=== PATIENT | female | born 1945 | race Caucasian/White ===

== ENCOUNTER → 2019-12-17 | Outpatient (CLI) | payer MEDICARE ==
[~2019-12-17] MED LIST: Aspir 8181 MG PO; Bystolic5 MG PO; CARB200; CRUTCH USE; Coumadin5 MG PO; GABA300 PO; HYDACE5325 PO; HYDCHL12.5 PO; MECL25 PO; OXYACE5T PO; XARELTO20 MG PO
== END | disposition home or self-care (01) ==
LOC: LAB SHORT 09:20 → LAB EV 09:20
DX: N39.0 Urinary tract infection, site not specified (principal)
CPT/HCPCS: 87086

== ENCOUNTER 2020-05-29 14:51 | Emergency (ER) | payer MEDICARE ==
[~2020-05-29] VITALS: Ht 165.1 cm; Wt 94.8 kg
[2020-05-29] MEDS ORDERED: Lovastatin20 MG PO (14:58)
[2020-05-29] MEDS ORDERED: HYDROCODONE-AC1 EA10 PO (14:58)
[2020-05-29] MEDS ORDERED: NITR.4SL SL (14:59)
[2020-05-29] MEDS ORDERED: ALBU8HFA2 (14:59)
[2020-05-29] MEDS ORDERED: GABA300 PO (14:59)
[2020-05-29] MEDS ORDERED: FURO40 PO (14:59)
[2020-05-29] MEDS ORDERED: MULVITA PO (15:00)
[2020-05-29] MEDS ORDERED: Lisinopril-Hct1 EAC4 PO (15:00)
[2020-05-29] MEDS ORDERED: ALEN70 PO (15:00)
[2020-05-29] MEDS ORDERED: POTA10T PO (15:00)
[2020-05-29] MEDS ORDERED: HYDRO EYE (15:00)
[2020-05-29 15:42] LABS: BASOPHILS ABSOLUTE AUTO 0.06 K/mm3 (0.00-0.23); BASOPHILS PERCENT AUTO 1 % (0-2); EOSINOPHILS ABSOLUTE AUTO 0.69 K/mm3 (0.00-0.68); EOSINOPHILS PERCENT AUTO 8 % (0-6); Hematocrit 44.6 % (33.0-51.0); Hemoglobin 14.2 g/dL (11.5-16.0); IMMATURE GRAN ABSOLUTE AUTO 0.03 K/mm3 (0.00-0.10); IMMATURE GRAN PERCENT AUTO 0 % (0-1); LYMPHOCYTES ABSOLUTE AUTO 2.31 K/mm3 (0.84-5.20); LYMPHOCYTES PERCENT AUTO 27 % (21-46); MONOCYTES ABSOLUTE AUTO 0.75 K/mm3 (0.16-1.47); MONOCYTES PERCENT AUTO 9 % (4-13); Mean Corpuscular HGB 28.7 pg (26.0-34.0); Mean Corpuscular HGB Conc 31.8 g/dL (31.5-36.5); Mean Corpuscular Volume 90 fL (80-100); NEUTROPHILS ABSOLUTE AUTO 4.77 K/mm3 (1.96-9.15); NEUTROPHILS PERCENT AUTO 56 % (41-73); Platelet Count 191 K/mm3 (150-400); RDW Coefficient Variation 12.9 % (11.7-14.2); RDW Standard Deviation 42.5 fL (35.1-46.3); Red Blood Cell Count 4.95 M/mm3 (3.80-5.20); White Blood Cell Count 8.61 K/mm3 (4.00-11.30)
[2020-05-29] MEDS ORDERED: XARELTO15 MG PO (16:20)
[2020-05-29 16:22] LABS: Alanine Aminotransfer (ALT/SGP 19 U/L (12-78); Albumin, Blood 3.7 g/dL (3.4-5.0); Albumin/Globulin Ratio 0.9 (0.8-1.8); Alk Phos 81 U/L (50-136); Anion Gap 4 mmol/L (6-16); Aspartate Aminotrans (AST/SGOT 16 U/L (12-37); Bilirubin, Total 0.4 mg/dL (0.1-1.0); Blood Urea Nitrogen 12 mg/dL (8-24); Bun/Creatinine Ratio 12.9 (12.0-20.0); CO2, Blood 28 mmol/L (21-32); Calcium, Blood 9.3 mg/dL (8.5-10.1); Chloride, Blood 108 mmol/L (98-108); Creatinine, Blood 0.93 mg/dL (0.40-1.00); Globulin, Blood 4.3 g/dL (2.2-4.0); Glomerular Filtration Rate >60 (60-); Glucose, Blood 100 mg/dL (70-99); Potassium, Blood 4.2 mmol/L (3.5-5.5); Sodium, Blood 140 mmol/L (136-145)
[2020-11-02] MEDS ORDERED: Prinivil10 MG (12:09)
[2020-11-02] MEDS ORDERED: IPRAT-ALBUT 0.5-3 ML (12:09)
== END 2020-05-29 17:20 | disposition home or self-care (01) ==
LOC: ER 14:51
PROVIDERS: Physician Assistant
DX: I82.411 Acute embolism and thrombosis of right femoral vein (principal); I82.431 Acute embolism and thrombosis of right popliteal vein; I82.441 Acute embolism and thrombosis of right tibial vein; Z88.2 Allergy status to sulfonamides
CPT/HCPCS: 80053; 85025; 93971; 99284-25; A9270

== ENCOUNTER 2020-11-10 11:52 | Day surgery (SDC) | payer MEDICARE ==
[~2020-11-10] VITALS: Ht 165.1 cm; Wt 94.1 kg
[~2020-11-10 11:52] MED LIST changes: +ALBU8HFA2; +ALEN70 PO; +FURO40 PO; +HYDRO EYE; +HYDROCODONE-AC1 EA10 PO; +IPRAT-ALBUT 0.5-3 ML; +Lisinopril-Hct1 EAC4 PO; +Lovastatin20 MG PO; +MULVITA PO; +NITR.4SL SL; +POTA10T PO; +Prinivil10 MG; +XARELTO15 MG PO
--- NOTE | 2020-11-10 12:22 | NUR ---
11/10/20 1222 True,Nam HASSAN BOWEL PREP [facility]
== END 2020-11-10 14:40 | disposition home or self-care (01) ==
LOC: ORSCSDS 11:52
PROVIDERS: Surgery
PROC: 0DB68ZX Excision of Stomach, Via Natural or Artificial Opening Endoscopic, Diagnostic (ICD-10-PCS; principal; 2020-11-10 13:00)
PROC: 0DBH8ZX Excision of Cecum, Via Natural or Artificial Opening Endoscopic, Diagnostic (ICD-10-PCS; principal; 2020-11-10 13:00)
PROC: 0DBL8ZX Excision of Transverse Colon, Via Natural or Artificial Opening Endoscopic, Diagnostic (ICD-10-PCS; principal; 2020-11-10 13:00)
DX: K62.5 Hemorrhage of anus and rectum (principal); R13.10 Dysphagia, unspecified; B96.81 Helicobacter pylori [H. pylori] as the cause of diseases classified elsewhere; D12.0 Benign neoplasm of cecum; D12.3 Benign neoplasm of transverse colon; K25.9 Gastric ulcer, unspecified as acute or chronic, without hemorrhage or perforation; K64.8 Other hemorrhoids; I25.10 Atherosclerotic heart disease of native coronary artery without angina pectoris; I10 Essential (primary) hypertension; G47.33 Obstructive sleep apnea (adult) (pediatric); N18.30 Chronic kidney disease, stage 3 unspecified; E66.9 Obesity, unspecified; Z68.34 Body mass index [BMI] 34.0-34.9, adult; Z79.01 Long term (current) use of anticoagulants; Z79.899 Other long term (current) drug therapy
CPT/HCPCS: 88305; 88341; 88342; J2704; J7120

== ENCOUNTER → 2021-01-21 | Outpatient (CLI) | payer MEDICARE | END | disposition home or self-care (01) | LOC: LAB SHORT 17:26 | DX: N39.0 Urinary tract infection, site not specified (principal) | CPT/HCPCS: 87077; 87086; 87186 ==

== ENCOUNTER 2021-06-04 06:07 | Day surgery (SDC) | payer MEDICARE ==
[~2021-06-04] VITALS: Ht 165.1 cm; Wt 96.8 kg
[~2021-06-04 06:07] MED LIST changes: +NEURONTIN300 MG PO; +Ventolin/Prove6.7 GM; +XARELTO20 M1 PO
--- NOTE | 2021-06-04 06:41 | NUR ---
Ambulatory in [facility] warming gown applied. History, Chart, Medications and Allergies reviewed before start of procedure.Lungs clear T/O to Auscultation. Patient confirms NPO status and agrees with scheduled surgery. Pre-Op teaching done. Pt verbalizes understanding. Patient States Post-Procedure ride home has been arranged.
--- NOTE | 2021-06-04 08:06 | NUR ---
06/04/21 0806 Marilyn Fernandez NO PREOP ANTIBIOTICS ORDERED PER .
--- NOTE | 2021-06-04 09:54 | NUR ---
PT TOLERATING PO FLUIDS AND FOOD, ABLE TO REPOSITION SELF IN BED. PT ALERT AND ORIENTED AND REQUESTING TO BE DISCHARGED.
--- NOTE | 2021-06-04 10:22 | NUR ---
Patient up to Ambulate independently. Gait steady. Discharge instructions reviewed with patient. Patient verbalizes understanding. Copy given to patient to take home. Patient States Post-Procedure ride home has been arranged. Discharged via wheelchair to private car for ride home. ALL BELONGINGS RETURNED TO PATIENT.
== END 2021-06-04 12:00 | disposition home or self-care (01) ==
LOC: ORSCMMR 06:07 → ORD 09:45 → ORSCMMR 09:45
PROVIDERS: Surgery
PROC: 06BY0ZC Excision of Hemorrhoidal Plexus, Open Approach (ICD-10-PCS; principal; 2021-06-04 07:30)
DX: K64.2 Third degree hemorrhoids (principal); I10 Essential (primary) hypertension; I25.10 Atherosclerotic heart disease of native coronary artery without angina pectoris; G47.33 Obstructive sleep apnea (adult) (pediatric); N18.30 Chronic kidney disease, stage 3 unspecified; K21.9 Gastro-esophageal reflux disease without esophagitis; Z79.899 Other long term (current) drug therapy; Z86.718 Personal history of other venous thrombosis and embolism; Z79.01 Long term (current) use of anticoagulants; E66.01 Morbid (severe) obesity due to excess calories; Z68.35 Body mass index [BMI] 35.0-35.9, adult
CPT/HCPCS: 88304; J1100; J2370; J2405; J2704; J3010; J7120

== ENCOUNTER → 2021-06-09 | Outpatient (CLI) | payer MEDICARE | END | disposition home or self-care (01) | LOC: LAB SHORT 11:15 | DX: R30.9 Painful micturition, unspecified (principal) | CPT/HCPCS: 87077; 87086; 87186 ==

== ENCOUNTER 2024-01-03 10:43 | Inpatient (IN) | payer MEDICARE ==
[~2024-01-03] VITALS: Ht 165.1 cm; Wt 94.6 kg
[2024-01-03] VITALS (7 sets, daily range): BP systolic 147–188; BP diastolic 86–136
[2024-01-03 11:20] LABS: BASOPHILS ABSOLUTE AUTO 0.07 K/mm3 (0.00-0.23); BASOPHILS PERCENT AUTO 1 % (0-2); EOSINOPHILS ABSOLUTE AUTO 0.05 K/mm3 (0.00-0.68); EOSINOPHILS PERCENT AUTO 0 % (0-6); Hematocrit 44.5 % (33.0-51.0); IMMATURE GRAN ABSOLUTE AUTO 0.54 K/mm3 (0.00-0.10); IMMATURE GRAN PERCENT AUTO 4 % (0-1); LYMPHOCYTES ABSOLUTE AUTO 2.45 K/mm3 (0.84-5.20); LYMPHOCYTES PERCENT AUTO 18 % (21-46); MONOCYTES ABSOLUTE AUTO 1.09 K/mm3 (0.16-1.47); MONOCYTES PERCENT AUTO 8 % (4-13); Mean Corpuscular HGB 29.8 pg (26.0-34.0); Mean Corpuscular HGB Conc 33.7 g/dL (31.5-36.5); Mean Corpuscular Volume 88 fL (80-100); Mean Platelet Volume 9.9 fL (9.1-12.4); NEUTROPHILS ABSOLUTE AUTO 9.47 K/mm3 (1.96-9.15); NEUTROPHILS PERCENT AUTO 69 % (41-73); Platelet Count 335 K/mm3 (150-400); RDW Coefficient Variation 12.9 % (11.7-14.2); RDW Standard Deviation 41.7 fL (35.1-46.3); Red Blood Cell Count 5.04 M/mm3 (3.80-5.20); White Blood Cell Count 13.67 K/mm3 (4.00-11.30)
[2024-01-03 11:35] LABS: Albumin, Blood 3.4 g/dL (3.4-5.0); Albumin/Globulin Ratio 0.9 (0.8-1.8); Bilirubin, Total 0.6 mg/dL (0.1-1.0); Bun/Creatinine Ratio 25.6 (12.0-20.0); Calcium, Blood 9.2 mg/dL (8.5-10.1); Creatinine, Blood 1.33 mg/dL (0.40-1.00); Globulin, Blood 3.7 g/dL (2.2-4.0); Potassium, Blood 4.5 mmol/L (3.5-5.5); Total Protein, Blood 7.1 g/dL (6.4-8.2)
[2024-01-03] MEDS ORDERED: Nitroglycerin 1 INCH/GM PKT TOP ONE (12:00)
[2024-01-03] MEDS ORDERED: Morphine Sulfate 4 MG/1 ML Injection IV ONE (12:05)
[2024-01-03] MEDS ORDERED: Nitroglycerin 0.4 MG SUBL SL PRN (14:00)
[2024-01-03] MEDS ORDERED: Ondansetron HCl 2 MG / ML 2ML Vial IV PRN (14:45)
[2024-01-03] MEDS ORDERED: Acetaminophen 325 MG TABLET PO PRN (14:45)
[2024-01-03] MEDS ORDERED: NS 1,000 ML IV SCH (15:00)
[2024-01-03] MEDS ORDERED: HYDROcodone 5-APAP 325 TAB PO PRN (15:15)
[2024-01-03] MEDS ORDERED: Losartan Potassium 50 MG Tab PO SCH (15:30)
--- NOTE | 2024-01-03 16:02 | NUR ---
Telephone report from MADIE Lombardi. Anticipating pt arrival to [facility]U 18 shortly.
[2024-01-03 16:30] LABS: Anti-Xa UFH, PHA Monitoring 0.16 IU/mL; International Normalized Ratio 1.05; Prothrombin Time Results 11.2 Sec (9.7-11.5)
--- NOTE | 2024-01-03 16:36 | NUR ---
Pt arrived to PCU 18, able to transfer from stretcher while in hallway outside of door and walked to the bed in the room. ShOB noted, not severe. Conversant, taking 1 breath mid sentence while sitting on side of bed. Assisted into patient gown, lying down to begin Echocardiogram in the room. B/P noted high; ED RN said that she gave the cozaar before transferring pt to PCU. No c/o chest pain at time of admission.
[2024-01-03] MEDS ORDERED: LOSA50 PO (17:34)
[2024-01-03] MEDS ORDERED: METHI10 PO (17:36)
[2024-01-03] MEDS ORDERED: FAMO20 PO (17:37)
[2024-01-03] MEDS ORDERED: Nitroglycerin 1 INCH/GM PKT TOP SCH (18:00)
--- NOTE | 2024-01-03 18:49 | NUR ---
Pt denies chest pain, B/p is normalizing. No noticeable sHob with walking to bathroom to void. C/o headache; Tylenol was give for relief. NTG paste applied per orders. Pt was educated on medications (heparin, NTG, IV fluids). Cardiology told the pt that she would be seen in the morning. Noted troponin 4852; next draw at 2000 this evening, and again 0500 in am.
[2024-01-03] MEDS ORDERED: Heparin Sodium,Porcine/0.5 NS 500 ML IV SCH (20:00)
[2024-01-03] MEDS ORDERED: Atorvastatin 40 MG Tab PO SCH (21:00)
[2024-01-03] MEDS ORDERED: Gabapentin 300 MG Cap PO SCH (21:00)
[2024-01-04] VITALS (13 sets, daily range): BP systolic 113–153; BP diastolic 74–93
[2024-01-04] MEDS ORDERED: Dose Adjust by Pharmacy XX STA (04:22)
[2024-01-04 05:17] LABS: CHOL/HDL RATIO 2.2; Cholesterol 171 mg/dL (50-200); HDL Cholesterol 79 mg/dL (>39); LDL/HDL RATIO 0.9; Low Density Lipoprotein Chol 74 mg/dL (0-110); Triglycerides 90 mg/dL (30-160); Very Low Density Lipoprot Chol 18 mg/dL (6-32)
[2024-01-04] MEDS ORDERED: Pantoprazole Sodium 40 MG Tab PO SCH (06:00)
--- NOTE | 2024-01-04 06:53 | NUR ---
shift summary- "Mickey" (Celia) had a good night- although anxious for her angiogram tomorrow. She states she would like something prior to her procedure if possible- will pass along to dayshift RN. Elevated troponins throughout maintenance technician 2nd shift- all reported to on-call MD. Heparin gtt started at 8pm without issue. Nitro-paste applied as ordered, mickey complained of headache most of the night- tylenol and hydrocodone given for relief, and around 5am she stated that the pain had finally surpassed. Mickey had no complaints of chest pain throughout the night. Report given to oncoming RN.
[2024-01-04 07:31] LABS: BASOPHILS ABSOLUTE AUTO 0.08 K/mm3 (0.00-0.23); BASOPHILS PERCENT AUTO 1 % (0-2); EOSINOPHILS ABSOLUTE AUTO 0.06 K/mm3 (0.00-0.68); EOSINOPHILS PERCENT AUTO 0 % (0-6); Hemoglobin 15.6 g/dL (11.5-16.0); IMMATURE GRAN ABSOLUTE AUTO 0.41 K/mm3 (0.00-0.10); IMMATURE GRAN PERCENT AUTO 3 % (0-1); LYMPHOCYTES ABSOLUTE AUTO 2.16 K/mm3 (0.84-5.20); LYMPHOCYTES PERCENT AUTO 16 % (21-46); MONOCYTES ABSOLUTE AUTO 1.22 K/mm3 (0.16-1.47); MONOCYTES PERCENT AUTO 9 % (4-13); Mean Corpuscular HGB 29.8 pg (26.0-34.0); Mean Corpuscular HGB Conc 32.5 g/dL (31.5-36.5); Mean Corpuscular Volume 92 fL (80-100); Mean Platelet Volume 10.5 fL (9.1-12.4); NEUTROPHILS ABSOLUTE AUTO 9.83 K/mm3 (1.96-9.15); NEUTROPHILS PERCENT AUTO 71 % (41-73); Platelet Count 344 K/mm3 (150-400); RDW Coefficient Variation 13.2 % (11.7-14.2); RDW Standard Deviation 44.7 fL (35.1-46.3); Red Blood Cell Count 5.24 M/mm3 (3.80-5.20); White Blood Cell Count 13.76 K/mm3 (4.00-11.30)
[2024-01-04 07:38] LABS: Albumin, Blood 3.7 g/dL (3.4-5.0); Albumin/Globulin Ratio 0.9 (0.8-1.8); Bilirubin, Total 0.9 mg/dL (0.1-1.0); Bun/Creatinine Ratio 25.2 (12.0-20.0); Calcium, Blood 9.3 mg/dL (8.5-10.1); Creatinine, Blood 1.19 mg/dL (0.40-1.00); Globulin, Blood 4.3 g/dL (2.2-4.0); Potassium, Blood 5.3 mmol/L (3.5-5.5)
--- NOTE | 2024-01-04 08:00 | NUR ---
vital signs stable; assessment complete. Pt denies any chest discomfort, dyspnea, nor headache or other pain at this time. Troponins continue to rise, no downward trend yet. Heparin gtt ongoing, nitro paste in place, and consent is signed for angiogram in the chart. Spoke with Kristine Lomeli, discharge door operator at this time about this patient. Pt asked to alert staff if she has any symptoms, or any discomfort at her IV sites. Verified heparin gtt with eMAR.
--- NOTE | 2024-01-04 08:39 | NUR ---
Dr. Shen happened to be in the unit. Discussed with him the elevated troponins; plan continues as it was before. Pt will go for angiogram this morning. New verbal orders rec'd for Toprol and spironolactone. slitter scorer cut off operator Nicole updated.
[2024-01-04] MEDS ORDERED: Aspirin 81 MG TabEC PO SCH (09:00)
[2024-01-04] MEDS ORDERED: Gabapentin 300 MG Cap PO SCH (09:00)
[2024-01-04] MEDS ORDERED: Losartan Potassium 50 MG Tab PO SCH ×2 (09:00)
[2024-01-04] MEDS ORDERED: Spironolactone 25 MG Tab PO SCH (09:00)
[2024-01-04] MEDS ORDERED: Metoprolol Succinate 25 MG TABCR PO SCH (09:00)
[2024-01-04] MEDS ORDERED: NS 1,000 ML IV ONE ×2 (10:50→11:06)
[2024-01-04] MEDS ORDERED: Nitroglycerin 2 MG/20 ML BTL ONE (10:50)
[2024-01-04] MEDS ORDERED: Heparin Sodium 1000 Units/ML 10ML MDV ONE ×2 (10:50→11:34)
[2024-01-04] MEDS ORDERED: NS 250 ML IV ONE (10:50)
[2024-01-04] MEDS ORDERED: NiCARdipine HCL 1,000 MCG/5 ML SYR ONE (10:50)
--- NOTE | 2024-01-04 10:54 | NUR ---
PT taken [facility]. Called Pharmacy to notify of heparin gtt pause.
[2024-01-04] MEDS ORDERED: FentaNYL Citrate 50 MCG/ML 2 ML Injection ONE (11:06)
[2024-01-04] MEDS ORDERED: Midazolam HCl 1MG / ML 2ML Vial ONE (11:06)
[2024-01-04] MEDS ORDERED: Ticagrelor 90 MG TABLET ONE (11:40)
[2024-01-04] MEDS ORDERED: NS 1,000 ML IV SCH (12:10)
--- NOTE | 2024-01-04 12:22 | NUR ---
Pt is sitting up in bed, comfortable and without dyspnea or chest discomfort, eating lunch. Cheerfully conversant, expressing her thanks to the staff for care. TR band and white immoblizer board in place. Right wrist site visualized; no bleeding, no bruising, no hematoma. Distal pulse palpable. Dark red purple coloration of the right hand but continuous oximetry has good pleth and spo2 is 91% on the right index finger. Pt denies any pain/numbness in the right extremity. Recovery vitals in progress per orders.
--- NOTE | 2024-01-04 12:48 | NUR ---
NITRO PASTE REMOVED.
--- NOTE | 2024-01-04 12:50 | NUR ---
Pt c/o numbness in the right hand. Also had blanching of her right palm and cyanosis. spo2 91% on the index finger. Slowly removed 2 cc air from TR band, pt states relief. spo2 94% No bleeding, no hematoma, at the site. TR band in place. White immobilizer board in place. Hand color afterwards improving, still dark red but no blanching.
--- NOTE | 2024-01-04 13:19 | NUR ---
Upon receiving a referral for spiritual care, I visited the patient. She is lying in bed and resting but easily awakens to the sound of her name. She tells me about the events that led to her admission to the hospital, her current condition and the procedure that is scheduled for this day. The patient shares that she is nervous about the procedure, her concerns for her spouse, Josef, who has only 16% lung capacity (according to the patient) and is home alone, and about her [employer] carlos. I provided anxiety containment, prayer and therapeutic listening. Rufus responded well and showed signs of reduced stress. I will continue to remain available to patient and family.
--- NOTE | 2024-01-04 14:01 | NUR ---
4 cc air removed from the band total in last 30 minutes. Site remains WNL. Pt ambulatory to bathroom with staff present. Denies dizzyness/pain/dyspnea. V/S are stable. NS infusing at 50 cc/hour, pt has been eating and drinking without difficulty.
--- NOTE | 2024-01-04 15:27 | NUR ---
TR band was fully deflated at 1450. Site remains WNL.
--- NOTE | 2024-01-04 16:13 | NUR ---
TR band removed, area cleansed with chlorohexidine swab, sterile tegederm applied. NO bleeding. Small lump under the skin noted, soft. folded gauze square placed over dressing and secured with Coban to prevent oozing. Pt denies any pain. v/s are stable.
[2024-01-04] MEDS ORDERED: Ticagrelor 90 MG TABLET PO SCH (21:00)
[2024-01-05 03:48] VITALS: BP 129/74
[2024-01-05 04:22] LABS: Hematocrit 47.8 % (33.0-51.0); Hemoglobin 15.9 g/dL (11.5-16.0); Mean Corpuscular HGB 30.1 pg (26.0-34.0); Mean Corpuscular HGB Conc 33.3 g/dL (31.5-36.5); Mean Corpuscular Volume 91 fL (80-100); Mean Platelet Volume 10.1 fL (9.1-12.4); Platelet Count 310 K/mm3 (150-400); RDW Coefficient Variation 13.2 % (11.7-14.2); RDW Standard Deviation 43.7 fL (35.1-46.3); Red Blood Cell Count 5.28 M/mm3 (3.80-5.20); White Blood Cell Count 12.34 K/mm3 (4.00-11.30)
[2024-01-05 04:46] LABS: Bun/Creatinine Ratio 28.3 (12.0-20.0); Calcium, Blood 8.7 mg/dL (8.5-10.1); Creatinine, Blood 1.13 mg/dL (0.40-1.00); Potassium, Blood 4.6 mmol/L (3.5-5.5)
--- NOTE | 2024-01-05 05:23 | NUR ---
SHIFT SUMMARY PT A&O X4, ABLE TO MAKE NEEDS KNOWN. VSS, AFEBRILE, SPO2 >93% RA. PT DENIES CP OR SOB, ALTHOUGH DOES REPORT SOME SOB ON EXERTION. PT AMBULATED TO RESTROOM SEVERAL TIMES T/O SHIFT SBA. R. RADIAL SITE IS COVERED WITH TEGADERM, AND IS FREE FROM BLEEDING, HEMATOMA, BRUISING, OR REDNESS. ARM BOARD IN PLACE. NO ACUTE EVENTS THIS SHIFT. PT IS RESTING QUIETLY IN BED, CALL LIGHT WITHIN REACH, BREATHING EVEN AND UNLABORED.
[2024-01-05 08:35] VITALS: BP 133/72
[2024-01-05] MEDS ORDERED: methIMAzole 5 MG TABLET PO SCH (09:00)
--- NOTE | 2024-01-05 09:59 | NUR ---
AM NOTE thisn rn assumed care at 0700. vital signs stable. tele sinus rhythm patient is alert and oriented x4. neuro is intact. patient is able to make needs known and uses call light appropriately. denies pain, chest pain/pressure or shortness of breath. see shift assessment for further detials plan is up to date at this time
[2024-01-05] MEDS ORDERED: LOSA50 PO (11:25)
[2024-01-05] MEDS ORDERED: ATORVASTATIN CA80 M1 PO (11:28)
[2024-01-05] MEDS ORDERED: Aspir 8181 MG PO (11:28)
[2024-01-05] MEDS ORDERED: TICA90TA PO (11:29)
[2024-01-05] MEDS ORDERED: SPIR25 PO (11:29)
[2024-01-05] MEDS ORDERED: METO25ER PO (11:29)
--- NOTE | 2024-01-05 11:50 | NUR ---
DISCHARGE this rn went over discharge education with the patient. this rn went over follow up appointments with primary care provider and infection control specialist. this rn went over new medications and medications to stop. patient verbalized understanding. patient left with all belongings and in no distress
== END 2024-01-05 11:54 | disposition home or self-care (01) | DRG 322 ==
LOC: ER 10:43 → PCU 14:43
PROVIDERS: Emergency Medicine; Internal Medicine Cardiovascular Disease; ADMIT Hospitalist
PROC: 027034Z Dilation of Coronary Artery, One Artery with Drug-eluting Intraluminal Device, Percutaneous Approach (ICD-10-PCS; principal; 2024-01-04)
PROC: B2111ZZ Fluoroscopy of Multiple Coronary Arteries using Low Osmolar Contrast (ICD-10-PCS; 2024-01-04)
PROC: 4A023N7 Measurement of Cardiac Sampling and Pressure, Left Heart, Percutaneous Approach (ICD-10-PCS; 2024-01-04)
DX: I21.4 Non-ST elevation (NSTEMI) myocardial infarction (principal); Z86.718 Personal history of other venous thrombosis and embolism; E66.9 Obesity, unspecified; K21.9 Gastro-esophageal reflux disease without esophagitis; M10.9 Gout, unspecified; M19.90 Unspecified osteoarthritis, unspecified site; I25.10 Atherosclerotic heart disease of native coronary artery without angina pectoris; G62.9 Polyneuropathy, unspecified; K76.0 Fatty (change of) liver, not elsewhere classified; I12.9 Hypertensive chronic kidney disease with stage 1 through stage 4 chronic kidney disease, or unspecified chronic kidney disease; N18.30 Chronic kidney disease, stage 3 unspecified; G89.4 Chronic pain syndrome; Z88.2 Allergy status to sulfonamides; Z91.018 Allergy to other foods; Z79.899 Other long term (current) drug therapy; Z79.891 Long term (current) use of opiate analgesic; Z79.01 Long term (current) use of anticoagulants; Z90.710 Acquired absence of both cervix and uterus; Z90.49 Acquired absence of other specified parts of digestive tract; Z90.89 Acquired absence of other organs; Z98.890 Other specified postprocedural states; Z68.35 Body mass index [BMI] 35.0-35.9, adult
CPT/HCPCS: 36415; 71045; 71260; 76937; 80048; 80053; 80061; 84443; 84484; 85025; 85027; 85347; 85379; 85520; 85610; 85730; 93005; 93010; 93458; 96374-59; 99152; 99153; 99285-25; A9270; C1769; C1874; C1887; C1894; C8929; C9600; J1644; J2250; J2270; J3010; J7030; J7050; Q9957; Q9967